=== PATIENT | female | born 1970 | race African-American/Black ===

== ENCOUNTER 2016-05-02 08:06 | Emergency (ER) | payer OTHER ==
[~2016-05-02] VITALS: Ht 180.3 cm; Wt 135.2 kg
[2016-05-02] MEDS ORDERED: NORCO 5-325 TA1 EACH PO (09:38)
[2016-05-02 10:58] VITALS: BP 126/72
== END 2016-05-02 11:02 | disposition home or self-care (01) ==
LOC: ER 08:06
DX: S82.62XA Displaced fracture of lateral malleolus of left fibula, initial encounter for closed fracture (principal); Z88.5 Allergy status to narcotic agent; W19.XXXA Unspecified fall, initial encounter; Y93.89 Activity, other specified; Y92.89 Other specified places as the place of occurrence of the external cause; Y99.8 Other external cause status

== ENCOUNTER 2016-12-30 22:14 | Emergency (ER) | payer OTHER ==
[~2016-12-30] VITALS: Ht 180.3 cm; Wt 134.3 kg
[~2016-12-30 22:14] MED LIST: NORCO 5-325 TA1 EACH PO
[2016-12-30] MEDS ORDERED: LEXAPRO20 MG PO (22:44)
[2016-12-30] MEDS ORDERED: XANAX 0.25 MG0.25 MG PO (22:44)
[2016-12-30] MEDS ORDERED: TRAZODONE HCL50 MG PO (22:45)
[2016-12-30] MEDS ORDERED: CYCLOBENZAPRINE5 MG PO (22:45)
[2016-12-30] MEDS ORDERED: TRAMADOL 50 MG50 MG PO (22:45)
[2016-12-30] MEDS ORDERED: PREDNISONE 20 M20 MG PO (23:14)
[2016-12-30] MEDS ORDERED: NORCO 5-325 TA1 EACH PO (23:14)
[2016-12-30 23:43] VITALS: BP 130/81
== END 2016-12-30 23:45 | disposition home or self-care (01) ==
LOC: ER 22:14
DX: M54.41 Lumbago with sciatica, right side (principal); F41.9 Anxiety disorder, unspecified; F10.99 Alcohol use, unspecified with unspecified alcohol-induced disorder; Z88.5 Allergy status to narcotic agent